=== PATIENT | female | born 1990 ===

== ENCOUNTER → 2024-05-11 | Outpatient (REF) | payer BC | LOC: M WUC 17:47 | PROVIDERS: ATTEND Student in an Organized Health Care Education/Training Program | DX: R30.0 Dysuria (principal) ==

== ENCOUNTER → 2024-07-09 | Outpatient (REF) | payer BC | LOC: M LAB REF 09:37 | PROVIDERS: ATTEND Physician Assistant | DX: R30.0 Dysuria (principal) ==